=== PATIENT | male | born 1975 | race Caucasian/White ===

== ENCOUNTER 2018-11-24 16:09 | Observation (INO) ==
[2018-11-24] MEDS ORDERED: ASPIRIN PO ONE (16:42)
--- NOTE | 2018-11-24 17:08 | EKG Report ---
Test Performed on : 11/24/2018 4:19:12 PM Test Reason : CHEST DISCOMFORT 2 YRS DIZZINESS ANXIETY Blood Pressure : / mmHG Vent. Rate : 074 BPM Atrial Rate : 074 BPM P-R Int : 196 ms QRS Dur : 096 ms QT Int : 378 ms P-R-T Axes : 069 037 037 degrees QTc Int : 419 ms Normal sinus rhythm. Nonspecific T wave abnormality Abnormal ECG When compared with ECG of 30-APR-2017 20:13, No significant change was found Unconfirmed Result
[2018-11-24 17:09] LABS: BASO# 0.03 X1000 (0.0-0.2); BASO% 0.3 % (0.0-0.8); EOS# 0.39 X1000 (0.0-0.7); EOS% 4.4 % (0.0-10.0); HEMATOCRIT 37.1 % (42.0-52.0); HEMOGLOBIN 11.7 g/dL (14.0-18.0); IMM GRAN# 0.02 X1000 (0.0-0.04); IMM GRAN% 0.2 % (0.0-0.5); LYMPH# 2.32 X1000 (1.2-3.4); LYMPH% 26.2 % (20.5-51.1); MCH 27.9 PG (27-31); MCHC 31.5 g/dL (33-37); MCV 88.5 FL (81-99); MONO# 0.95 X1000 (0.11-0.59); MONO% 10.7 % (1.7-9.3); MPV 9.7 FL (7.4-10.4); NEUT# 5.16 X1000 (1.4-6.5); NEUT% 58.2 % (42.2-75.2); PLT 300 X1000 (130-400); RBC 4.19 XMIL (4.7-6.1); RDW 13.5 % (11.5-14.5); WBC 8.87 X1000 (4.8-10.8)
[2018-11-24 17:23] LABS: INR 0.93; PROTIME 12.9 Seconds (11.0-16.0)
[2018-11-24 17:24] LABS: PTT 28.8 Seconds (22.3-41.8)
[2018-11-24 17:27] LABS: AGAP 10; ALBUMIN 4.3 g/dL (3.5-5.0); ALKALINE PHOSPHATASE 66 U/L (32-122); BUN 17 mg/dL (8-22); CALCIUM 8.7 mg/dL (8.8-10.2); CHLORIDE 101 mmol/L (98-107); COSMO 281; CREATININE 0.8 mg/dL (0.7-1.2); ESTIMATED GFR > 60; GLUCOSE 98 mg/dL (70-104); GOT 13 U/L (10-34); GPT 13 U/L (10-44); POTASSIUM 4.2 mmol/L (3.5-5.1); SODIUM 140 mmol/L (136-145); TCO2 29 mmol/L (25-35); TOTAL PROTEIN 7.7 g/dL (6.3-8.3)
[2018-11-24] MEDS ORDERED: ANTIVERT PO ONE (17:37)
--- NOTE | 2018-11-24 17:48 | Diag Imaging Result Doc PS360 ---
CHEST-2 VIEWS - 11/24/2018 INDICATION: cp COMPARISON: 04/30/2017 FINDINGS: The lungs are normally expanded and clear. Heart size and mediastinal contours are normal. No pneumothorax or pleural effusion. IMPRESSION: Negative exam. Electronically signed by Prakash Duvall 11/24/2018 5:46 PM
--- NOTE | 2018-11-24 18:07 | PROVIDER DOCUMENTATION ---
This chart was entered by Natty Banks Scribe, acting as scribe for Saadia King CRNP. HPI-Syncope/Dizziness - General Chief Complaint: Dizziness Stated Complaint: WEAK / DIZZY / CHEST DISCOMFORT Time Seen by Provider: 11/24/18 17:00 Source: patient Allergies/Adverse Reactions: Patient Allergies Allergy/AdvReac Type Severity Reaction Status Date / Time shellfish derived Allergy SWELLING Verified 11/24/18 16:36 Home Medications: Home Medication List Medication Instructions Recorded Confirmed Last Taken Type NK [No Home Medications] 12/24/17 11/24/18 Unknown History - History of Present Illness-Syncope/Dizzy Nature of Presenting Problem: 43yom presents to ED cc dizziness, off/on for years but worse lately, weakness, and a 'hollow' feeling in central chest while outside having a picnic today. Pt also reports a left side headache after returning from Xray in ED. States the dizziness is not affected by change of position. Pt denies diaphoresis, radiation of pain, n/v/d, SOB, visual changes. States he has been under a lot of stress recently. Pt reports prior cardiac workup that was unremarkable. Pt is in no apparent distress and nontoxic in appearance. Onset/Duration: reports: gradual Timing: reports: still present Position/Activity at time of episode: reports: sitting (having picnic outside) Symptoms prior to episode: reports: none Loss of Consciousness: no loss of consciousness Current Symptoms: reports: chest pain ("hollow feeling"), weakness, dizzy (mild) , headache. denies: fever, sweaty, breathing difficulty, short of breath, nausea, vomiting, shoulder pain, arm pain, pale, blurred vision Similar symptoms previously: reports: workup for same problem (negative) Recently Seen Here or By Another Healthcare Provider: No - Dizziness Severity in ED: reports: mild Dizziness Related Current/Associated Symptoms: reports: weakness, dizzy, headach e, headache, chronic dizziness. denies: nausea/vomiting, blurred vision, ringing/roaring in ears, earache, syncope Any recent trauma/injury?: reports: none Modifying Factors: improves with: nothing Patient usually:: reports: walks without assistance Review of Systems - Adult - REVIEW OF SYSTEMS - ADULT Constitutional: reports: see humphrey POWELL. denies: chills, fever Eyes: reports: no symptoms reported. denies: decreased vision, blurred vision, double vision Ears, Nose, Mouth & Throat: reports: no symptoms reported. denies: ear pain, throat pain Cardiovascular: reports: see HPI, chest pain. denies: palpitations Respiratory: reports: no symptoms reported. denies: cough, dyspnea on exertion, shortness of breath Gastrointestinal: reports: no symptoms reported. denies: diarrhea, nausea, vomiting Genitourinary: reports: no symptoms reported Musculoskeletal: reports: muscle weakness (muscle cramp R foot) Integumentary: reports: no symptoms reported Neurological: reports: see HPI, dizziness/vertigo, headache/migraines. denies: numbness, seizure, syncope Psychiatric: reports: no symptoms reported Past History - Adult - PAST MEDICAL HISTORY-ADULT Review of Records: reports: Nursing Assessment Review, Medications Reviewed, Social history reviewed & non-contributory. Major Childhood Illnesses: reports: denies history Cardiovascular: reports: denies history Respiratory: reports: denies history Gastrointestinal: reports: denies history Obstetrical/Gynecological: reports: denies history Genitourinary: reports: denies history Musculoskeletal: reports: denies history Neurological: reports: denies history Endocrine/Immune: reports: denies history Other Conditions: reports: denies history - PRIOR SURGERIES/PROCEDURES Surgical/Procedure History: reports: none - IMMUNIZATION STATUS Childhood Immunizations: See Nurse Assessment Flu Vaccine: See Nurse Assessment - FAMILY HISTORY Family History: reviewed, not pertinent Physical Exam-General - PHYSICAL EXAM-ADULT Initial Vital Signs Reviewed: Yes - CONSTITUTIONAL General Appearance: appears well, alert, no apparent distress, obese. negative: anxious, lethargic, combative - EYES Eyes: PERRL/EOMI, pink conjunctivae. negative: EOM palsy, photophobia, scleral icterus - HEAD, EARS, NOSE, MOUTH & THROAT HENMT: normocephalic/atraumatic, moist mucous membranes, normal ENT inspection, TMs normal. negative: angioedema - NECK Neck: non-tender, full range of motion, supple - RESPIRATORY Respiratory: chest non-tender, lungs clear, normal breath sounds, no pleuratic chest pain, no respiratory distress, no accessory muscle use. negative: crackles, rales, rhonchi, stridor, wheezing - CARDIOVASCULAR Cardiovascular: normal peripheral pulses, regular rate, rhythm. negative: bradycardia, tachycardia - GASTROINTESTINAL (ABDOMEN) Abdominal Exam: normal bowel sounds, non tender, soft - MUSCULOSKELETAL Back Exam: normal inspection Extremity: normal range of motion, non-tender, normal gait, normal inspection, pelvis stable. negative: deformity - SKIN Integumentary: normal color, warm/dry. negative: diaphoresis, ecchymosis, jaundice - NEUROLOGIC Neurologic: grossly normal. negative: abnormal gait, aphasia, EOM palsy - PSYCHIATRIC Psych/Mental Status: normal mood/affect, normal thought content, normal thought process, oriented x 3. negative: anxious, disheveled Progress - PLAN OF CARE/RESULTS Progress/Plan/Lab Results: Vital Signs - 8 hr 11/24/18 16:12 11/24/18 17:12 11/24/18 19:40 Temperature 98 F Pulse Rate 69 58 L Pulse Rate [Sitting] 76 Pulse Rate [Standing] 71 Pulse Rate [Supine] 80 Respiratory Rate 18 18 Blood Pressure 150/82 177/92 Blood Pressure [Sitting] 117/68 Blood Pressure [Standing] 125/72 Blood Pressure [Supine] 129/74 O2 Sat by Pulse Oximetry 97 99 Laboratory Results - last 24 hr 11/24/18 11/24/18 11/24/18 16:31 16:57 16:57 WBC RBC Hgb Hct MCV MCH MCHC RDW Std Deviation Plt Count MPV Immature Gran % (Auto) Neut % (Auto) Lymph % (Auto) [place] % (Auto) Eos % (Auto) Baso % (Auto) Immature Gran # (Auto) Neut # (Auto) Lymph # (Auto) [place] # (Auto) Eos # (Auto) Baso # (Auto) PT INR PTT (Actin FS) D-Dimer, Quantitative Sodium Potassium Chloride Carbon Dioxide Anion Gap BUN Creatinine Estimated GFR/1.73 m2 BUN/Creatinine Ratio Glucose POC Glucose 110 H Calculated Osmolality Calcium Total Bilirubin AST ALT Alkaline Phosphatase Creatine Kinase 115 Troponin T < 0.010 Total Protein Albumin Globulin Albumin/Globulin Ratio 11/24/18 11/24/18 11/24/18 16:57 16:57 16:57 WBC 8.87 RBC 4.19 L Hgb 11.7 L Hct 37.1 L MCV 88.5 MCH 27.9 MCHC 31.5 L RDW Std Deviation 13.5 Plt Count 300 MPV 9.7 Immature Gran % (Auto) 0.2 Neut % (Auto) 58.2 Lymph % (Auto) 26.2 [place] % (Auto) 10.7 H Eos % (Auto) 4.4 Baso % (Auto) 0.3 Immature Gran # (Auto) 0.02 Neut # (Auto) 5.16 Lymph # (Auto) 2.32 [place] # (Auto) 0.95 H Eos # (Auto) 0.39 Baso # (Auto) 0.03 PT 12.9 INR 0.93 PTT (Actin FS) 28.8 D-Dimer, Quantitative Sodium 140 Potassium 4.2 Chloride 101 Carbon Dioxide 29 Anion Gap 10 BUN 17 Creatinine 0.8 Estimated GFR/1.73 m2 > 60 BUN/Creatinine Ratio 21 Glucose 98 POC Glucose Calculated Osmolality 281 Calcium 8.7 L Total Bilirubin 0.30 AST 13 ALT 13 Alkaline Phosphatase 66 Creatine Kinase Troponin T Total Protein 7.7 Albumin 4.3 Globulin 3.0 Albumin/Globulin Ratio 1.0 11/24/18 16:57 WBC RBC Hgb Hct MCV MCH MCHC RDW Std Deviation Plt Count MPV Immature Gran % (Auto) Neut % (Auto) Lymph % (Auto) [place] % (Auto) Eos % (Auto) Baso % (Auto) Immature Gran # (Auto) Neut # (Auto) Lymph # (Auto) [place] # (Auto) Eos # (Auto) Baso # (Auto) PT INR PTT (Actin FS) D-Dimer, Quantitative 0.62 H Sodium Potassium Chloride Carbon Dioxide Anion Gap BUN Creatinine Estimated GFR/1.73 m2 BUN/Creatinine Ratio Glucose POC Glucose Calculated Osmolality Calcium Total Bilirubin AST ALT Alkaline Phosphatase Creatine Kinase Troponin T Total Protein Albumin Globulin Albumin/Globulin Ratio Orders Category Date Time Status FSBS [Finger Stick Blood Sugar (ED)] DIRECTED Care 11/24/18 16:22 Active If abnormal EKG, order: NOW Care 11/24/18 16:16 Active Orthostatic Vital Signs NOW Care 11/24/18 17:00 Active Saline Loc NOW Care 11/24/18 18:34 Active CHEST-2 VIEWS [RAD] Stat Exams 11/24/18 16:42 Completed CBC WITH DIFF [HEME] Stat Lab 11/24/18 16:57 Completed CK PROFILE [SP CHEM] Stat Lab 11/24/18 16:57 Completed CK PROFILE [SP CHEM] Stat Lab 11/24/18 18:34 Ordered COMPREHENSIVE METABOLIC PANEL [CHEM] Stat Lab 11/24/18 16:57 Completed D-DIMER [COAG] Stat Lab 11/24/18 16:57 Completed PRO B-NATRIURETIC PEPTIDE Stat Lab 11/24/18 16:57 Received PROTIME WITH INR [COAG] Stat Lab 11/24/18 16:57 Completed PTT [COAG] Stat Lab 11/24/18 16:57 Completed TROPONIN T Stat Lab 11/24/18 16:57 Completed TROPONIN T Stat Lab 11/24/18 18:34 Ordered Aspirin Med 11/24/18 16:42 Discontinued 325 mg PO NOW ONE Enoxaparin 1 mg/kg [Lovenox 1 mg/kg] Med 11/24/18 19:41 Discontinued 1 each SUBQ NOW ONE Meclizine [Antivert] Med 11/24/18 17:37 Discontinued 25 mg PO NOW ONE CP/Palp <45 No Known Cardiac Hx Stat Oth 11/24/18 16:16 Ordered EKG [EKG] Stat Ther 11/24/18 16:16 Draft EKG [EKG] Stat Ther 11/24/18 18:34 Ordered EKG [EKG] Stat Ther 11/24/18 19:44 Ordered Venous U/S Right Leg Stat Ther 11/24/18 18:[address] Angiogram ordered d/t elevated d-dimer, CP, and negative venous u/s. Weight limit on CT table so VQ scan will need to be performed. Lovenox ordered. Will admit for observation and VQ scan. Plan of care discussed and formulated in conjunction with Dr. Camacho. Result Diagrams: 11/24/18 16:57 11/24/18 16:57 - REASSESSMENT Reassessment #1 Time Reassessed: 19:05 Reassessment Comment: Negative RLE venous u/s per U/S tech - EKG 1 Time of EKG reading by physician:: 16:21 EKG Read and Signed by:: Everton Metcalf EKG Interpretation (*Must complete 3 of following elements*): Abnormal Rate: 74 Rhythm: NSR [place]: normal QRS: normal [place] Interval: normal ST Wave: non-specific ST changes Prior EKG Comparison: unchanged from prior ("No significant change from 04/30/17") - XRAY 1 XRAY: Bilateral XRAY Study: Chest Impression: See EMR Report ([facility] - [address], [address], [place] [address] [facility] - [address] [facility] [place] [address] Department of Imaging Patient: BENJI CASIANO Date: 11/24/18#: [id number] : 1975ADM Status: REG ERAcct#: [id number] Age/Sex: 43/MRoom/Bed: Loc: P.ED Ordering Physician: Kadeem Hill Family Physician: Tyree Haywood DO Reason for Procedure: cp Signed CHEST-2 VIEWS - 11/24/2018 INDICATION: cp COMPARISON: 04/30/2017 FINDINGS: The lungs are normally expanded and clear. Heart size and mediastinal contours are normal. No pneumothorax or pleural effusion. IMPRESSION: Negative exam. Electronically signed by Prakash Duvall 11/24/2018 5:46 PM 11/24/18 174 Interpreting Physician: Prakash Duvall MD Dictated Date/Time: 11/24/181744 cc: Kadeem Hill; Tyree Haywood DO) - CONSULTS/PCP/HOSPITALIST Notification #1 *Consult/PCP/Hospitalist*: Echo Reeder Time Discussed: 19:45 Reason/Comments: CP, Elevated D-dimer Consult Disposition: Admit (VQ scan) Departure - Departure Date of Disposition Decision: 11/24/18 Time of Disposition Decision: 19:46 DIAGNOSIS: Dizziness, Weakness, Elevated d-dimer Chest pain Qualifiers: Chest pain type: unspecified Qualified Code(s): R07.9 - Chest pain, unspecified Obesity Qualifiers: Obesity type: unspecified obesity type Obesity classification: adult class 3 (BMI >= 40) Serious obesity comorbidity presence: unspecified whether serious comorbidity present Body mass index: BMI 60.0-69.9 Qualified Code(s): E66.01 - Morbid (severe) obesity due to excess calories Disposition: ADMITTED INPATIENT 09 Certified Medical Emergency: Emergent Condition: Stable Referrals and Follow-Ups: Tyree Haywood DO [Primary Care Provider] - - Critical Care Note This patient required my direct & personal management of CC.: No Attestation - Physician/ STEPHENIE Attestation Patient care was provided by Advanced Practice Provider:: Yes Advanced Practice Provider:: Saadia King Advanced Practice Provider documentation review:: The Mid-level provider documentation, treatment plan and medical decision making was reviewed by the physician who agrees with all treatment and medical decision making by the MLP. The physician spent face to face time with patient:: No Advanced Practice Provider documentation review:: Supervising physician onsite and consulted in the evaluation and care of this patient. The physician did not have a face to face encounter with the patient. - HEART Score HEART Score: History: Slightly Suspicious HEART Score: ECG: Non-Specific Repolarization Disturbance/LBBB/PM HEART Score: Age: 45-65 Years HEART Score: Risk Factors for Atherosclerotic Disease: > or = 3 Risk Factors or History of Atherosclerotic Disease HEART Score: Troponin: < or = Normal Limit Total HEART Score:: 4 This chart was documented by the indicated scribe, (Natty Banks Scribe) and accurately reflects the services I performed and decisions made by me, Saadia King CRNP, as attested by the provider's signature.
[2018-11-24] MEDS ORDERED: LOVENOX 1 MG/KG SUBQ ONE (19:41)
[2018-11-24] MEDS ORDERED: NS 1,000 ML IV ONE (19:50)
[2018-11-24] MEDS ORDERED: TYLENOL PO PRN (19:50)
--- NOTE | 2018-11-24 19:56 | ED EKG INTERP ---
EKG Interpretation - EKG Time of EKG reading by physician:: 19:57 EKG Read and Signed by:: Dimas Camacho EKG Interpretation (*Must complete 3 of following elements*): Abnormal Rate: 58 Rhythm: Sinus bradycardia with PACs [place]: normal QRS: normal [place] Interval: normal ST Wave: normal Prior EKG Comparison: changes noted (Bradycardia noted in this EKG; No ST abnormality) Attestation - Physician/ STEPHENIE Attestation Patient care was provided by Advanced Practice Provider:: Yes Advanced Practice Provider:: Saadia King Advanced Practice Provider documentation review:: The Mid-level provider documentation, treatment plan and medical decision making was reviewed by the physician who agrees with all treatment and medical decision making by the MLP. The physician spent face to face time with patient:: No Advanced Practice Provider documentation review:: Supervising physician onsite and consulted in the evaluation and care of this patient. The physician did not have a face to face encounter with the patient.
--- NOTE | 2018-11-24 20:00 | Extremity Venous Study ---
Venous U/S Right Leg - 11/24/2018 INDICATION: Calf pain; elevated d-dimer TECHNIQUE: COMPARISON: None FINDINGS: The veins of the right leg are fully compressible. There is normal color and pulse wave Doppler signal. There is a right Hooks's cyst. This measures about 7 x 4 cm. IMPRESSION: Normal exam of the veins. Right Hooks's cyst. Electronically signed by Prakash Duvall 11/24/2018 7:57 PM
[2018-11-24] MEDS ORDERED: LOVENOX SUBQ ONE ×4 (20:06→20:15)
[2018-11-25 06:59] LABS: BASO# 0.02 X1000 (0.0-0.2); BASO% 0.3 % (0.0-0.8); EOS# 0.36 X1000 (0.0-0.7); HEMOGLOBIN 10.8 g/dL (14.0-18.0); IMM GRAN# 0.01 X1000 (0.0-0.04); IMM GRAN% 0.2 % (0.0-0.5); LYMPH# 2.06 X1000 (1.2-3.4); LYMPH% 34.4 % (20.5-51.1); MCH 26.7 PG (27-31); MCV 89.1 FL (81-99); MONO# 0.57 X1000 (0.11-0.59); MONO% 9.5 % (1.7-9.3); MPV 10.5 FL (7.4-10.4); NEUT# 2.96 X1000 (1.4-6.5); NEUT% 49.6 % (42.2-75.2); PLT 261 X1000 (130-400); RBC 4.04 XMIL (4.7-6.1); RDW 13.6 % (11.5-14.5); WBC 5.98 X1000 (4.8-10.8)
[2018-11-25 07:24] VITALS: BP 111/47
[2018-11-25 07:33] LABS: AGAP 9; BUN 16 mg/dL (8-22); CALCIUM 8.3 mg/dL (8.8-10.2); CHLORIDE 103 mmol/L (98-107); COSMO 279; CREATININE 0.7 mg/dL (0.7-1.2); ESTIMATED GFR > 60; GLUCOSE 109 mg/dL (70-104); POTASSIUM 4.2 mmol/L (3.5-5.1); SODIUM 139 mmol/L (136-145); TCO2 26 mmol/L (25-35)
[2018-11-25] MEDS: LOVENOX SUBQ SCH ×4 (10:40→10:46)
--- NOTE | 2018-11-25 15:24 | HISTORY AND PHYSICAL ---
PRIMARY CARE PROVIDER: Dr. Haywood. SLUDGE MILL OPERATOR: Dr. Davis. HISTORY OF PRESENT ILLNESS: Mr. Reid is a 43-year-old morbidly obese male with a body mass index of 61.9. Reported to the ED with complaints of weakness, dizziness, and chest discomfort that has been ongoing for years now. He has been checked out by his primary care, his probation supervisor, Dr. Davis, with Holter monitors, echocardiogram, as well as followed up with neurologist for an EEG. They all had benign findings, but he did report an increase in this weakness, dizziness and chest discomfort. He describes it as an "empty hollow spot" in the center of his chest, again, that comes and goes. He feels his heart beating hard, but no skipping beats. No palpitations. No fluttering in the chest. It is nonradiating, not really associated with any shortness of breath, nausea, vomiting, or diaphoresis. It happens more so when he is up walking around or doing work, but it has also been associated when he has been at rest as well. Other history is bilateral knee arthritis for which he takes Tylenol Arthritis, occasional Mobic and ibuprofen. He also complains of a right hip pain that goes down to his right foot, and it feels like this pain is pulling his foot outward. He did have an elevated D-dimer on workup in the ED secondary to body habitus. He is not a candidate for V/Q scan or CTA of the chest. Bilateral Doppler was negative for DVT. He is not short of breath. He is not hypoxemic. He is not wheezing. Three sets of cardiac enzymes have been negative. Secondary to patient's body habitus, we were unable to obtain a CTA or V/Q scan. PAST MEDICAL HISTORY: Bilateral knee arthritis. PAST SURGICAL HISTORY: Varicose veins, EGD. SOCIAL HISTORY: He is . No children. No tobacco, alcohol or illicit drug use. REVIEW OF SYSTEMS: Twelve-point review of systems completely negative except for those mentioned in HPI. ALLERGIES: Shellfish. HOME MEDICATIONS: None; however, the patient states he takes Tylenol Arthritis, Mobic and ibuprofen at home. PHYSICAL EXAMINATION: VITAL SIGNS: Temperature is 97.4 degrees, heart rate 57, respirations 20, blood pressure 111/47, O2 is 98% on room air. GENERAL: Mr. Reid is a 43-year-old, morbidly obese, male who is sitting up on the side of the bed in no acute distress. HEENT: Atraumatic, normocephalic. PERRL. NECK: Thick, supple. Could not appreciate any JVD. CARDIOVASCULAR: S1, S2 appreciated. No murmurs, gallops, rubs noted. RESPIRATORY: Lung sounds clear bilaterally. GI: Obese, soft, nontender, nondistended. Positive bowel sounds in 4 quadrants. EXTREMITIES: In lower extremities, I could not appreciate any swelling. However, he does have multiple folds of skin around his ankles. NEUROLOGIC: No focal deficits noted. DIAGNOSTIC DATA: Chest x-ray was a negative exam. Ultrasound of the right leg was normal except for a right Hooks cyst. LABORATORY DATA: 1. White count 8, hemoglobin and hematocrit 11 and 37, platelet count is 300,000. D-dimer was 0.62. Sodium 140, potassium 4.2, BUN 17, creatinine 0.8, blood glucose was 98. Three sets of cardiac enzymes have been negative. ASSESSMENT AND PLAN: 1. Elevated D-dimer, suspicion for possible DVT or PE, DVT has been ruled out with venous Doppler. Unfortunately, due to the patient's body habitus, we were unable to get a CTA or V/Q scan. He is not short of breath. There is no wheezing. He is not hypoxemic. His EKG appears to be normal. He was, however, given full-dose Lovenox in the ED. 2. Chest pain, more discomfort with a "hollow feeling." The patient has had 3 sets of cardiac enzymes, ruled out for any acute coronary syndrome. 3. Weakness and dizziness. The patient was given Antivert. He is not having any dizziness at this time. He does not feel as weak as he did yesterday. He reports at that same empty hollow feeling is still there. He has had a full workup with Dr. Davis, his primary care provider, Dr. Haywood, as well as the neurologist. They have been unable to pinpoint any arrhythmias, heart disease or anything neurological. 4. Morbid obesity with a BMI 61.9. He will need continued education on diet, weight loss, possible weight loss surgery. 5. Right knee arthritis, aware. 6. Further recommendation to follow physician evaluation, laboratory data and diagnostic data. Dictated by CLAUDIA Burton for José Luis Crawford MD cc: MD Tyree Peña DO Ashish K. Basu, MD
--- NOTE | 2018-11-26 03:54 | DISCHARGE SUMMARY ---
ADMISSION DATE: 11/24/2018 DISCHARGE DATE: 11/25/2018 DISCHARGE DIAGNOSIS: Dizziness along with generalized weakness and hollow sensation in his chest. HOSPITAL COURSE: Mr. Reid is a 43-year-old gentleman who is morbidly obese and presented to the Emergency Department with dizziness along with generalized weakness and hollow sensation in this chest. He states that this has been going on for quite some time and has been evaluated by his Wrapper Hands Sprayer Dr. Davis, last year, but all his tests were found to be negative. He does have an appointment for follow up with Dr. Haywood his primary care on this coming Tuesday on 11/29/2018. He feels okay and has not been having any chest pain. He had negative cardiac enzymes with negative workup. He could not have any V/Q scan or CT angiogram to rule out any venous thromboembolism because of his morbid obesity. I do not suspect he has thromboembolism because of only minimal elevation of D-dimer of 0.62. His EKG looks okay and he does not show any shortness of breath symptoms or hypoxemia. We will therefore discharge him home today. DISCHARGE MEDICATIONS: None. FOLLOW-UP: With Dr. Haywood in approximately 5 days. CONDITION: Stable. DISPOSITION: Home. cc: José Luis Crawford MD
== END 2018-11-25 12:30 | disposition home or self-care (01) ==
LOC: P.ED 16:09 → SUATTDRO 16:10 → P.MEDSURG 16:10 → INTOOBSV 16:10
PROVIDERS: ATTEND Internal Medicine